=== PATIENT | male | born 1995 | race Two or more races ===

== ENCOUNTER 2024-12-15 16:12 | Inpatient (IN) | payer OTHER ==
[~2024-12-15] VITALS: Ht 177.8 cm; Wt 68.2 kg
[2024-12-15 19:30] LABS: COVID AG,FIA SOURCE NASAL SWAB
[2024-12-15 19:34] LABS: APPEARANCE,URINE CLEAR (CLEAR); BILIRUBIN,URINE NEGATIVE (NEGATIVE); COLOR,URINE YELLOW (YELLOW); GLUCOSE, URINE (UA) NEGATIVE (NEGATIVE); KETONES,URINE NEGATIVE (NEGATIVE); LEUKOCYTE ESTERASE ,URINE NEGATIVE (NEGATIVE); NITRATE,URINE NEGATIVE (NEGATIVE); OCCULT BLOOD,URINE NEGATIVE (NEGATIVE); PROTEIN,URINE TRACE mg/dL (NEGATIVE); SPECIFIC GRAVITIY, URINE 1.017 (1.003-1.030); UROBILINOGEN,URINE <=1.0 mg/dL (<=1.0)
[2024-12-15 19:43] LABS: ALCOHOL, URINE DRUG SCREEN NEGATIVE (NEGATIVE); AMPHET/METH SCREEN,URINE POSITIVE (NEGATIVE); BARBITURATE SCREEN, URINE NEGATIVE (NEGATIVE); BENZODIAZEPINES SCREEN,URINE NEGATIVE (NEGATIVE); CANNABINOID SCREEN,URINE NEGATIVE (NEGATIVE); COCAINE SCREEN,URINE NEGATIVE (NEGATIVE); METHADONE SCREEN, URINE NEGATIVE (NEGATIVE); OPIATE SCREEN,URINE NEGATIVE (NEGATIVE); PHENCYCLIDINE SCREEN,URINE NEGATIVE (NEGATIVE)
[2024-12-15 19:51] LABS: SARS-COV2 (COVID) ANTIGEN,FIA Negative (Negative)
[2024-12-15] MEDS ORDERED: MAGNESIUM HYDROXIDE SUSPENSION 30 ML UDCUP PO PRN (23:15)
[2024-12-15] MEDS ORDERED: ACETAMINOPHEN 325 MG TABLET PO PRN (23:15)
[2024-12-15] MEDS ORDERED: ALBUTEROL SULFATE 2.5 MG/0.5 ML NEB SOLUTION NEB PRN (23:15)
[2024-12-15] MEDS ORDERED: ZOLPIDEM TARTRATE 5 MG TABLET PO PRN (23:15)
[2024-12-15] MEDS ORDERED: ONDANSETRON HCL 4 MG/2 ML VIAL IVP PRN (23:15)
[2024-12-15] MEDS ORDERED: IPRATROPIUM BROMIDE 0.5 MG/2.5 ML NEB SOLUTION NEB PRN (23:15)
[2024-12-15] MEDS ORDERED: BISACODYL 10 MG RECTAL RECTAL SUPPOSITORY PR PRN (23:15)
[2024-12-16] MEDS: HEPARIN SODIUM,PORCINE 5,000 UNITS/ML VIAL SQ SCH
[2024-12-16] MEDS ORDERED: DiphenhydrAMINE HCL 50 MG/ML VIAL ONE (08:26)
[2024-12-16] MEDS ORDERED: LORazepam 2 MG/ML VIAL ONE (08:26)
[2024-12-16] MEDS ORDERED: HALOPERIDOL LACTATE 5 MG/ML VIAL ONE (08:26)
[2024-12-16 08:58] VITALS: BP 153/90; PULSE 67; RESP 18; TEMP 98; O2SAT 99
[2024-12-16] MEDS: PANTOPRAZOLE SODIUM 40 MG DR TABLET PO SCH (09:00)
[2024-12-16] MEDS: HALOPERIDOL LACTATE 5 MG/ML VIAL IM ONE (09:39)
[2024-12-16] MEDS: LORazepam 2 MG/ML VIAL IM ONE (09:39)
[2024-12-16] MEDS: DiphenhydrAMINE HCL 50 MG/ML VIAL IM ONE (09:39)
[2024-12-16 19:45] VITALS: BP 124/70; PULSE 79; RESP 20; TEMP 98.4; O2SAT 98
[2024-12-17 05:02] VITALS: BP 117/75; PULSE 73; RESP 20; TEMP 98.4; O2SAT 98
[2024-12-17 07:43] VITALS: BP 138/86; PULSE 70; RESP 18; TEMP 98.2; O2SAT 98
[2024-12-17 19:45] VITALS: BP 134/79; PULSE 76; RESP 20; TEMP 98.8; O2SAT 95
[2024-12-18 04:59] VITALS: BP 133/94; PULSE 82; RESP 20; TEMP 98.1; O2SAT 97
[2024-12-18 07:43] VITALS: BP 146/97; PULSE 86; RESP 18; TEMP 97.7; O2SAT 99
== END 2024-12-18 20:05 | DRG 885 ==
LOC: EMS 16:12 → EDH 21:05 → 6N 12-16 08:09
PROVIDERS: ADMIT Hospitalist; ATTEND Hospitalist
PROC: GZ56ZZZ Individual Psychotherapy, Supportive (ICD-10-PCS; principal; 2024-12-16)
PROC: GZ58ZZZ Individual Psychotherapy, Cognitive-Behavioral (ICD-10-PCS; 2024-12-16)
DX: F29 Unspecified psychosis not due to a substance or known physiological condition (principal); R45.851 Suicidal ideations; Z20.822 Contact with and (suspected) exposure to COVID-19; F15.10 Other stimulant abuse, uncomplicated; I10 Essential (primary) hypertension; G47.00 Insomnia, unspecified; Z79.899 Other long term (current) drug therapy; Z91.148 Patient's other noncompliance with medication regimen for other reason
CPT/HCPCS: 80307; 81003; 99285; G0378; J1200; J1630; J1644; J2060